=== PATIENT | female | born 1955 | race Caucasian/White ===

== ENCOUNTER 2022-03-12 19:44 | Emergency (ER) | payer BC ==
[~2022-03-12] VITALS: Ht 167.6 cm; Wt 81.8 kg
[2022-03-12 19:51] VITALS: TEMP 98.3
[2022-03-12 22:13] VITALS: BP 162/97; PULSE 99
== END 2022-03-12 22:13 | disposition home or self-care (01) ==
LOC: COL.ER 19:44
DX: S82.841A Displaced bimalleolar fracture of right lower leg, initial encounter for closed fracture (principal); Z87.891 Personal history of nicotine dependence; Z28.310 Unvaccinated for COVID-19; W10.8XXA Fall (on) (from) other stairs and steps, initial encounter; Y92.002 Bathroom of unspecified non-institutional (private) residence as the place of occurrence of the external cause